=== PATIENT | male | born 1975 | race African-American/Black ===

== ENCOUNTER → 2017-03-01 | Outpatient (CLI) | payer BC, OTHER ==
[~2017-03-01] VITALS: Ht 185.4 cm; Wt 144.7 kg
[~2017-03-01] MED LIST: BYSTOLIC 5 MG5 M1 PO; FLEXERIL PO; GLUCOPHAGE XR500 MG PO; HYDROCODON-ACE1 EAC5 PO; METFORMIN HCL500 MG PO; NEXIUM40 MG PO; NORCO 10-325 T1 EACH PO; TRADJENTA5 MG PO; ZESTORETIC 20-1 EAC3 PO; ZOFRAN ODT4 MG PO
--- NOTE | ~2017-03-01 | HPC ---
[facility] [address] [address] PAIN MANAGEMENT CONSULTATION Name: ISHMAEL MIJARES Room #: REG JACQUESEl Duncan#: [id number] Admission: 03/01/17 Attend Phys: Dean Lamb DO Discharge: Date of : 79 Report #: [id number] THIS REPORT FOR: //name// CC: Yenny Lamb DATE OF SERVICE: 03/01/2017 The patient is a very pleasant 41-year-old gentleman, prior seen for neurogenic claudication, lumbar radiculopathy, had a spinal cord stimulator placed in 2014. I did the trial lead. He was referred on for paddle implantation 03/15/2015. He was somewhat lost to follow up. Returns to pain clinic today, not having been seen for nearly 3 years. Returns noting spinal cord stimulator had generally been helping, but is developing increasing pain, right low back, lateral leg in L4 distribution. He rates his pain anywhere from 5-6 on a VAS. He has a [employer] stimulator in place and he has actually not been using for the past couple of months. 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 He notes standing does exacerbate pain. He notes pain is exacerbated both sitting and standing or if he does any lifting. He uses ice and cold to help with pain. He does use hydrocodone 10/325 p.r.n., Flexeril for spasm. REVIEW OF SYSTEMS AND COMORBIDITIES: Include non-insulin dependent diabetes for which he takes metformin and linagliptin; hypertension, treated with lisinopril and hydrochlorothiazide. Morbidly obese with BMI of 42 kilograms per meter squared. He does swim 2-3 times a week for exercise. Does not use tobacco products (he is a former smoker). PHYSICAL EXAMINATION: Shows a 41-year-old gentleman, 185 cm, 145 kilograms, again BMI is 42.1 kilograms per meter squared. Blood pressure is modestly elevated at 149/96, pulse 78, respirations are 16. Cranial nerves 2-12 are grossly intact. Pupils equal, reactive to light and accommodation. Extraocular muscles are intact. He is alert and oriented to person, place and time. Rises from chair using armrest. Modestly antalgic gait. Diffuse tenderness in the right low back, buttock, and leg down the lateral aspect in L4 distribution. Positive straight leg raise on the right. [employer] was available today to help reprogram and recharge the stimulator. It actually had gone . I did warn the patient that with the [employer]tr[employer] stimulators, the IPG will not be recoverable if it loses power more than 3 times. ASSESSMENT: Symptomatic lumbar radiculopathy with recurrent radicular pain in a morbidly obese gentleman with comorbidities including non-insulin dependent diabetes. Spinal cord stimulator in place. RECOMMENDATIONS: Given the patient has continued to do physical activity, [address] [address] PAIN MANAGEMENT CONSULTATION Name: ISHMAEL MIJARES Room #: REG El Duncan#: [id number] Admission: 03/01/17 Attend Phys: Dean Lamb DO Discharge: Date of : 79 Report #: [id number] swimming twice a week, he has taken nonsteroidal anti-inflammatory medications and has ongoing radicular pain in a right L4 radicular pattern, we will seek authorization for epidural injection under fluoroscopy. The patient was discharged in good and stable condition. Told to continue to charge stimulator. Continue conservative therapies including nonsteroidal anti-inflammatory medications, physical therapy including swimming biweekly; if symptoms continue in 2 weeks, we will move forward with epidural injection under fluoroscopy. We will seek authorization for same. <ELECTRONICALLY SIGNED> By: Dean Lamb DO 03/05/17 [id number] Dean Lamb DO /nt
[2017-03-01 10:56] VITALS: BP 149/96
== END | disposition home or self-care (01) ==
LOC: PAIN 07:17
DX: M54.16 Radiculopathy, lumbar region (principal); I10 Essential (primary) hypertension; E11.9 Type 2 diabetes mellitus without complications; E66.01 Morbid (severe) obesity due to excess calories; Z87.891 Personal history of nicotine dependence; Z68.41 Body mass index [BMI] 40.0-44.9, adult; Z98.890 Other specified postprocedural states; Z88.8 Allergy status to other drugs, medicaments and biological substances; Z79.899 Other long term (current) drug therapy